=== PATIENT | female | born 1960 | race Caucasian/White ===

== ENCOUNTER 2016-06-10 18:24 | Emergency (ER) | payer OTHER ==
[~2016-06-10] VITALS: Ht 157.5 cm; Wt 102.1 kg
[2016-06-10 18:36] VITALS: BP 136/88
--- NOTE | 2016-06-10 18:47 | ED NECK/BACK PAIN COMPLAINT ---
History of Present Illness General Chief Complaint: Low Back Pain/Injury Stated Complaint: LOW BACK PAIN X 1 WEEK Source: patient, family Exam Limitations: no limitations Vital Signs & Intake/Output Vital Signs & Intake/Output Vital Signs Date Time Temp Pulse Resp B/P Pulse O2 O2 Flow FiO2 Ox Delivery Rate 06/10 1836 98.0 67 18 136/88 98 Room Air Allergies Coded Allergies: No Known Allergies (06/10/16) Reconcile Medications Black Cohosh Root (Black Cohosh) (Unknown Strength) CAPSULE (Unknown Dose) PO DAILY SUPPLEMENT (Reported) Cholecalciferol (Vitamin D3) (Vitamin D) (Unknown Strength) CAPSULE (Unknown Dose) PO DAILY SUPPLEMENT (Reported) Cinnamon Bark (Cinnamon) (Unknown Strength) CAPSULE (Unknown Dose) PO DAILY SUPPLEMENT (Reported) Cyanocobalamin (Vitamin B-12) (Unknown Strength) TABLET (Unknown Dose) PO DAILY SUPPLEMENT (Reported) Cyclobenzaprine HCl 10 MG TABLET 1 TAB PO QPM PRN MUSCLE RELAXOR Ginseng (Unknown Strength) CAPSULE (Unknown Dose) PO DAILY SUPPLEMENT ( Reported) Hydrocodone/Acetaminophen (Vicodin 5-300 MG Tablet) 5 MG-300 MG TABLET 1 TAB PO QPM PRN PAIN Ketorolac Tromethamine 10 MG TABLET 1 TAB PO TID PRN PAIN Levothyroxine Sodium 150 MCG TABLET 1 TAB PO DAILY THYROID (Reported) Omeprazole Magnesium (Prilosec Otc) 20 MG TABLET.DR 1 TAB PO DAILY GI ( Reported) Triage Note: PT TO TRIAGE WITH C/O LOWER BACK PAIN 10/10. PAIN STARTED 2 WEEKS AGO, PROGRESSIVELY GETTING WORSE. PT HAS BEEN TAKING IBUPROFEN WITH NO RELIEF. PT DENIES ANY INJURY. VSS. Triage Nurses Notes Reviewed? 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 Patient denies any mechanism of injury or fall or twisting event. Patient has been using ibuprofen with relief initially however in the last 24 hours no relief. Denies any chest pain abdominal pain dysuria hematuria or lower extremity paresthesia or weakness. Patient states lumbar spine movements make worse. Past History Travel History Traveled to Any past 21 day No Medical History Any Pertinent Medical History? see below for history Gastrointestinal: GERD Endocrine: hypothyroidism Surgical History Surgical History: non-contributory Psychosocial History What is your primary language Maltese Tobacco Use: Never used Family History Hx Contributory? No Review of Systems Review of Systems Constitutional: Reports: no symptoms. Eyes: Reports: no symptoms. Ears, Nose, Throat, Mouth: Reports: no symptoms. Respiratory: Reports: no symptoms. Cardiovascular: Reports: no symptoms. Gastrointestinal/Abdominal: Reports: no symptoms. Musculoskeletal: Reports: see HPI, back pain. Skin: Reports: no symptoms. Neurological/Psychological: Reports: no symptoms. All Other Systems: Reviewed and Negative Physical Exam Physical Exam General Appearance: mild distress, obese Head: atraumatic Neck: normal inspection, supple, full range of motion Comments: HEENT: Normal EENT exam, extraocular motion intact, no nystagmus. Pupils equally round and reactive to light and accommodation. Nose is atraumatic. External auditory canal and Tympanic membranes clear. Pharynx normal. No swelling or edema. Neck: Supple, no lymphadenopathy, normal range of motion without pain or tenderness Back: Normal inspection, bilateral paralumbar muscular point tenderness noted, no central spinous tenderness noted, decreased active range of motion noted Cardiovascular: Regular rate and rhythms no murmurs rubs or gallops, normal JVP Respiratory: Chest nontender. No respiratory distress.breath sounds clear to auscultation bilaterally Abdomen: Soft, nontender nondistended, no appreciable organomegaly. Normal bowel sounds. No ascites Extremity: No edema, no calf tenderness to palpation, normal and equal pulses. Bilateral lower extremity myotomes dermatomes intact Neuro: Alert oriented x3, motor sensory normal, Skin: No appreciable rash on exposed skin, skin is warm and dry. Psych: Mood and affect is normal, memory and judgment is normal. Progress Differential Diagnosis: AAA, aortic dissection, C spine injury, carotid dissection, cauda equina syn, herniated disc, myofascial strain, pyelo/UTI, sciatica, spinal cord inj, thoracic outlet syn, T/L spine injury, ureterolithiasis Plan of Care: Current Medications Sig/Dex Start time Last Medication Dose Stop Time Status Admin Ketorolac 30 MG ONCE ONE 06/10 1929 AC Tromethamine 06/10 1930 (Toradol) No concerns of CAUDA EQUINA Patient had no central spinous tenderness and no history of mechanism of injury. Patient has reproducible pain upon lumbar spine movements. On discharge patient was in no apparent distress patient was strongly advised to obtain health insurance and to follow up as directed [place] discharge instructions (VERÓNICA BUSTILLO,MONCHO) Departure Departure Disposition: HOME OR SELF CARE Condition: Stable Clinical Impression Primary Impression: Low back pain Referrals: RANJAN ALEXIS,KAIDEN [place] (PCP/Family) Additional Instructions: As discussed please try to obtain health insurance as soon as possible for coverage. When YOU obtain health insurance please establish a primary care doctor and establish orthopedic DR. Key for further evaluation treatment. Begin icing the area directly 20 minutes every 2 hours. Begin the prescription a ketorolac for pain and inflammation and did not use this medication simultaneously with NSAID such as ibuprofen. Begin the prescription of cyclobenzaprine as directed for muscle relaxation begin a prescription of Vicodin for breakthrough pain relief. Activity as tolerated do not JUST bed rest as this may worsen your symptoms. If symptoms worsen return to emergency room. Prescriptions are waiting at the [facility] pharmacy Departure Forms: Customer Survey General Discharge Information Prescriptions: Current Visit Scripts Ketorolac Tromethamine 1 TAB PO TID PRN PAIN #15 TAB Cyclobenzaprine HCl 1 TAB PO QPM PRN MUSCLE RELAXOR #7 TAB Hydrocodone/Acetaminophen (Vicodin 5-300 MG Tablet) 1 TAB PO QPM PRN PAIN #7 TAB
[2016-06-10] MEDS ORDERED: LEVOTHYROXINE150 MCG PO (18:53)
[2016-06-10] MEDS ORDERED: PRILOSEC OTC20 M1 PO (18:54)
[2016-06-10] MEDS ORDERED: ASPIRIN EC81 M1 PO (18:54)
[2016-06-10] MEDS ORDERED: CINNAMON500 M1 PO (18:57)
[2016-06-10] MEDS ORDERED: GINSENG250 MG PO (18:57)
[2016-06-10] MEDS ORDERED: VITAMIN B-121000 MC3 PO (18:57)
[2016-06-10] MEDS ORDERED: VITAMIN D2000 UNIT PO (18:57)
[2016-06-10] MEDS ORDERED: BLACK COHOSH200 MG PO (18:58)
[2016-06-10] MEDS ORDERED: KETOROLAC TROME10 M1 PO (19:25)
[2016-06-10] MEDS ORDERED: VICODIN 5-3001 EACH PO (19:25)
[2016-06-10] MEDS ORDERED: CYCLOBENZAPRINE10 M1 PO (19:25)
== END 2016-06-10 19:35 ==
LOC: ERH 18:24
DX: M54.5 Low back pain (principal)
CPT/HCPCS: 96372; J1885